=== PATIENT | male | born 1960 | race Asian ===

== ENCOUNTER 2020-07-17 13:40 | Emergency (ER) | payer OTHER ==
[~2020-07-17] VITALS: Ht 172.7 cm; Wt 87.1 kg
[2020-07-17 13:46] VITALS: Ht 172.7 cm; Wt 87.1 kg
[2020-07-17 15:40] LABS: BASOPHIL % 0.6 % (0-2); PLATELET COUNT 283 x10^3mcL (130-400)
[2020-07-17 15:44] LABS: RED CELL DISTRIBUTION WIDTH 17.5 % (11.5-14.5)
[2020-07-17 16:20] LABS: CALCIUM 8.8 mg/dL (8.5-10.1); CARBON DIOXIDE 28.1 mmol/L (21-32); CREATININE SERUM 1.5 mg/dL (0.7-1.3); POTASSIUM SERUM 3.7 mmol/L (3.5-5.1)
[2020-07-17 16:24] LABS: ALBUMIN 3.3 g/dL (3.4-5.0); BILIRUBIN TOTAL 0.5 mg/dL (0.20-1.00); TOTAL PROTEIN, SERUM 7.7 g/dL (6.4-8.2)
[2020-07-17 16:28] VITALS: BP 139/93
== END 2020-07-17 16:28 | disposition home or self-care (01) ==
LOC: ED 13:40
PROVIDERS: Emergency Medicine
DX: R10.13 Epigastric pain (principal); I10 Essential (primary) hypertension; M19.90 Unspecified osteoarthritis, unspecified site
CPT/HCPCS: Q0092

== ENCOUNTER 2020-08-22 11:33 | Inpatient (IN) | payer OTHER ==
[~2020-08-22] VITALS: Ht 172.7 cm; Wt 78.0 kg
[2020-08-22 11:49] VITALS: Ht 172.7 cm; Wt 78.0 kg
[2020-08-22 13:01] LABS: UA SPECIFIC GRAVITY 1.015 (1.005-1.035); microscopic required? YES; urine erythrocyte TRACE (NEGATIVE)
[2020-08-22 14:48] LABS: BASOPHIL % 0.1 % (0-2); PLATELET COUNT 274 x10^3mcL (130-400)
[2020-08-22 14:49] LABS: RED CELL DISTRIBUTION WIDTH 17.9 % (11.5-14.5)
[2020-08-22 14:54] LABS: CALCIUM 8.8 mg/dL (8.5-10.1); CARBON DIOXIDE 26.1 mmol/L (21-32); CREATININE SERUM 1.7 mg/dL (0.7-1.3); POTASSIUM SERUM 3.8 mmol/L (3.5-5.1)
[2020-08-22 15:07] LABS: BILIRUBIN TOTAL 0.8 mg/dL (0.20-1.00); T4(THYROXINE) 5.5 ug/dL (4.7-13.3); TOTAL PROTEIN, SERUM 7.3 g/dL (6.4-8.2)
[2020-08-22 15:08] LABS: ALBUMIN 2.7 g/dL (3.4-5.0)
[2020-08-22] MEDS ORDERED: ALLOPURINOL300 M1 PO (17:16)
[2020-08-22] MEDS ORDERED: LOSARTAN POTASS50 M1 PO (17:16)
[2020-08-22] MEDS ORDERED: METOPROLOL TART50 MG PO (17:16)
[2020-08-22] MEDS ORDERED: METHOTREXATE2.5 M2 PO (17:17)
[2020-08-22 19:07] VITALS: BP 152/87
[2020-08-22 21:05] VITALS: BP 143/94
[2020-08-23 05:47] VITALS: BP 153/94
[2020-08-23 06:50] LABS: PLATELET COUNT 306 x10^3mcL (130-400)
[2020-08-23 07:02] LABS: BASOPHIL % 0 % (0-2); RED CELL DISTRIBUTION WIDTH 18.2 % (11.5-14.5)
[2020-08-23 07:33] LABS: CALCIUM 8.9 mg/dL (8.5-10.1); CARBON DIOXIDE 24.3 mmol/L (21-32); CREATININE SERUM 1.5 mg/dL (0.7-1.3); POTASSIUM SERUM 4.2 mmol/L (3.5-5.1)
[2020-08-23 07:50] VITALS: BP 174/107
[2020-08-23 11:59] VITALS: BP 162/95
[2020-08-23 16:18] VITALS: BP 157/94
[2020-08-23 19:52] VITALS: BP 159/99
[2020-08-24 05:36] VITALS: BP 143/81
[2020-08-24 07:51] VITALS: BP 132/83
[2020-08-24 11:15] LABS: CARBON DIOXIDE 30.5 mmol/L (21-32); CREATININE SERUM 1.4 mg/dL (0.7-1.3)
[2020-08-24 12:00] VITALS: BP 174/94
[2020-08-24 16:15] VITALS: BP 167/96
[2020-08-24 18:15] VITALS: BP 153/91
[2020-08-24 22:05] VITALS: BP 152/81
[2020-08-25 05:26] VITALS: BP 158/99
[2020-08-25 06:56] LABS: BASOPHIL % 0.2 % (0-2); PLATELET COUNT 310 x10^3mcL (130-400); RED CELL DISTRIBUTION WIDTH 17.8 % (11.5-14.5)
[2020-08-25 07:02] LABS: CALCIUM 8.6 mg/dL (8.5-10.1); CARBON DIOXIDE 26.4 mmol/L (21-32); CREATININE SERUM 1.6 mg/dL (0.7-1.3); MAGNESIUM 2.6 mg/dL (1.8-2.4); PHOSPHOROUS 4.2 mg/dL (2.5-4.9); POTASSIUM SERUM 4.4 mmol/L (3.5-5.1)
[2020-08-25 08:11] VITALS: BP 173/99
[2020-08-25 12:50] VITALS: BP 158/96
[2020-08-25 17:21] VITALS: BP 164/90
[2020-08-25 18:22] VITALS: BP 144/102
[2020-08-25 20:58] VITALS: BP 146/97
[2020-08-26 05:45] VITALS: BP 142/80
[2020-08-26 07:10] LABS: BASOPHIL % 0.1 % (0-2); PLATELET COUNT 291 x10^3mcL (130-400); RED CELL DISTRIBUTION WIDTH 17.5 % (11.5-14.5)
[2020-08-26 07:12] LABS: CALCIUM 8.8 mg/dL (8.5-10.1); CARBON DIOXIDE 26.8 mmol/L (21-32); CREATININE SERUM 1.4 mg/dL (0.7-1.3); MAGNESIUM 2.6 mg/dL (1.8-2.4); PHOSPHOROUS 4.3 mg/dL (2.5-4.9); POTASSIUM SERUM 4.7 mmol/L (3.5-5.1)
[2020-08-26 08:22] VITALS: BP 151/98
[2020-08-26] MEDS ORDERED: PROS5 PO (09:04)
[2020-08-26] MEDS ORDERED: FLO4 PO (09:04)
[2020-08-26] MEDS ORDERED: PRE20 PO (09:05)
[2020-08-26 11:55] VITALS: BP 151/98
[2020-08-26 12:04] VITALS: BP 144/100
== END 2020-08-26 14:04 | disposition home or self-care (01) | DRG 381 ==
LOC: ED 11:33 → MU 16:22 → EDBEDREQ 16:37 → MU 18:01
PROVIDERS: Emergency Medicine; Internal Medicine Nephrology; ADMIT Family Medicine; ATTEND Family Medicine
DX: L40.9 Psoriasis, unspecified (principal); N17.0 Acute kidney failure with tubular necrosis; L03.90 Cellulitis, unspecified; L40.50 Arthropathic psoriasis, unspecified; E44.0 Moderate protein-calorie malnutrition; I12.9 Hypertensive chronic kidney disease with stage 1 through stage 4 chronic kidney disease, or unspecified chronic kidney disease; N18.3 Chronic kidney disease, stage 3 (moderate); N28.1 Cyst of kidney, acquired; E78.5 Hyperlipidemia, unspecified; Z20.828 Contact with and (suspected) exposure to other viral communicable diseases; M10.9 Gout, unspecified; M19.90 Unspecified osteoarthritis, unspecified site; I16.0 Hypertensive urgency; N40.1 Benign prostatic hyperplasia with lower urinary tract symptoms; Z79.899 Other long term (current) drug therapy
CPT/HCPCS: 76770; 83880; 84153; 90732; G0378; J0295; J1644; J2920; J2930; J3490; J7030; J7040; Q0092

== ENCOUNTER 2020-09-15 11:19 | Emergency (ER) | payer OTHER ==
[~2020-09-15] VITALS: Ht 172.7 cm; Wt 71.7 kg
[~2020-09-15 11:19] MED LIST: ALLOPURINOL300 M1 PO; FLO4 PO; LOSARTAN POTASS50 M1 PO; METHOTREXATE2.5 M2 PO; METOPROLOL TART50 MG PO; PRE20 PO; PROS5 PO
[2020-09-15 11:41] VITALS: Ht 172.7 cm; Wt 71.7 kg
[2020-09-15 13:00] LABS: microscopic required? YES; urine erythrocyte TRACE (NEGATIVE)
[2020-09-15 13:23] LABS: BASOPHIL % 0.2 % (0-2); PLATELET COUNT 283 x10^3mcL (130-400)
[2020-09-15 13:25] LABS: RED CELL DISTRIBUTION WIDTH 18.9 % (11.5-14.5)
[2020-09-15 13:38] LABS: CALCIUM 8.7 mg/dL (8.5-10.1); CARBON DIOXIDE 26.8 mmol/L (21-32); CREATININE SERUM 1.4 mg/dL (0.7-1.3); POTASSIUM SERUM 4.9 mmol/L (3.5-5.1)
[2020-09-15 13:42] LABS: BILIRUBIN TOTAL 0.6 mg/dL (0.20-1.00); TOTAL PROTEIN, SERUM 6.8 g/dL (6.4-8.2)
[2020-09-15 14:27] VITALS: BP 149/88
== END 2020-09-15 14:27 | disposition home or self-care (01) ==
LOC: ED 11:19
PROVIDERS: Emergency Medicine
DX: N39.0 Urinary tract infection, site not specified (principal); I10 Essential (primary) hypertension; M19.90 Unspecified osteoarthritis, unspecified site
CPT/HCPCS: 76770; Q0092